=== PATIENT | female | born 1995 | race Caucasian/White ===

== ENCOUNTER 2020-12-27 23:12 | Outpatient (CLI) | payer OTHER | END 2020-12-28 02:37 | disposition home or self-care (01) | LOC: GENOP 23:12 | DX: O99.891 Other specified diseases and conditions complicating pregnancy (principal); M54.9 Dorsalgia, unspecified; O32.1XX0 Maternal care for breech presentation, not applicable or unspecified; Z3A.29 29 weeks gestation of pregnancy | CPT/HCPCS: 59025; 81001; 87086; 96360; 96367; J0696; J7030 ==

== ENCOUNTER 2021-02-19 18:05 | Inpatient (IN) | payer OTHER ==
[~2021-02-19] VITALS: Ht 175.3 cm; Wt 104.3 kg
[2021-02-19 19:15] LABS: HEMOGLOBIN 11.3 gm/dl (12.3-15.3); RED BLOOD COUNT 3.91 M/UL (4.00-5.10); WHITE BLOOD COUNT 13.1 K/UL (4.5-11.0)
[2021-02-20] MEDS ORDERED: AUGMENTIN 500-500 MG PO (06:57)
[2021-02-21 08:33] LABS: HEMOGLOBIN 9.7 gm/dl (12.3-15.3)
[2021-02-21] MEDS ORDERED: DOCUSATE SODIU250 MG PO (08:59)
[2021-02-21] MEDS ORDERED: FEROSUL325 MG PO (08:59)
[2021-02-21] MEDS ORDERED: IBUPROFEN600 MG PO (08:59)
== END 2021-02-21 18:09 | disposition home or self-care (01) | DRG 807 ==
LOC: GENOP 18:05 → OB 18:23
PROVIDERS: Obstetrics & Gynecology; ADMIT Obstetrics & Gynecology
PROC: 10E0XZZ Delivery of Products of Conception, External Approach (ICD-10-PCS; principal; 2021-02-20)
PROC: 4A1HXCZ Monitoring of Products of Conception, Cardiac Rate, External Approach (ICD-10-PCS; 2021-02-20)
PROC: 10907ZC Drainage of Amniotic Fluid, Therapeutic from Products of Conception, Via Natural or Artificial Opening (ICD-10-PCS; 2021-02-20)
PROC: 00HU33Z Insertion of Infusion Device into Spinal Canal, Percutaneous Approach (ICD-10-PCS; 2021-02-20)
PROC: 3E0R3BZ Introduction of Anesthetic Agent into Spinal Canal, Percutaneous Approach (ICD-10-PCS; 2021-02-20)
DX: O24.420 Gestational diabetes mellitus in childbirth, diet controlled (principal); Z37.0 Single live birth; O76 Abnormality in fetal heart rate and rhythm complicating labor and delivery; O36.63X0 Maternal care for excessive fetal growth, third trimester, not applicable or unspecified; Z3A.39 39 weeks gestation of pregnancy
CPT/HCPCS: 36415; 51702; 81001; 82962; 85014; 85018; 85025; 90715; J0595; J2590; J7030